=== PATIENT | female | born 1995 | race African-American/Black ===

== ENCOUNTER 2016-07-26 11:51 | Emergency (ER) | payer MEDICAID ==
[~2016-07-26] VITALS: Ht 162.6 cm; Wt 75.3 kg
[~2016-07-26 11:51] MED LIST: AMOX500T PO; PREN1CHW7 PO
--- NOTE | 2016-07-26 12:47 | PD ---
HPI Chief Complaint Contractions and spotting Date Seen: July 26, 2016 Travel History International Travel<30 Days: No Contact w/Intl Traveler<30Days: No Known Affected Area: No History of Present Illness HPI The patient is 20-year-old black female at 38 weeks followed by the [facility] who presents complaining of contractions today and minimal spotting after being examined in the last several days digitally, she denies stan blood per vagina or leakage of fluid. Baby is active. heart rate tracing is reactive. And she is omer irregularly. Para: 0 : 1 History Social History Alcohol Use: No Tobacco Use: No Substance Abuse: No Allergies-Medications (Allergen,Severity, Reaction): Coded Allergies: No Known Allergies (Unverified , 07/26/16) Home Meds Active Scripts Amoxicillin 500 Mg Kyu654 Mg PO TID #21 TAB Ref 0 Prov:Rut Pinzon 07/24/16 Vit W/ Ferric Phospha (Vitafol Gummies 3.33-0.333-34.8 mg)1 Chw Chw3 Tab PO DAILY #90 BOTTLE Ref 11 Prov:Rut Pinzon 07/02/16 Review of Systems General / Constitutional: No: Fever, Weight Gain, Chills, Other Eyes: No: Diploplia, Blurred Vision, Visual changes, Pain, Photophobia HENT: No: Headaches, Vertigo, Lightheadedness Cardiovascular: No: Irregular Rhythm, Chest Pain or Discomfort, Palpitations, Tachycardia, Syncope, Varicosities, Edema, Cyanosis Respiratory: No: Cough, Short of Breath, Other Gastrointestinal: Abdominal Pain, No: Nausea, Vomiting, Diarrhea Genitourinary: No: Decreased Urinary Output, Oliguria Musculoskeletal: No: Limited ROM, Weakness, Cramping, Edema, Pain Skin: No Rash, No Itching, No Dryness, No Lumps, No Change in Pigmentation, No Change in Nails, No Alopecia, No Lesions Neurologic: No: Weakness, Dizziness, Syncope, Focal Abnormalities, Coordination Problem, Headache, Slurred Speech, Seizures Psychiatric: No: Depression, Suicidal Ideations, Homicidal Ideation Endocrine: No: Heat Intolerance, Cold Intolerance, Polydipsia, Polyuria, Other Physical Exam Narrative GENERAL: Well-nourished, well-developed patient. SKIN: Warm and dry. HEAD: Normocephalic and atraumatic. EYES: No scleral icterus. No injection or drainage. ENT: No nasal drainage noted. Mucous membranes pink. Airway patent. NECK: Supple, trachea midline. No JVD. CARDIOVASCULAR: Regular rate and rhythm without murmurs, gallops, or rubs. RESPIRATORY: Breath sounds equal bilaterally. No accessory muscle use. BREASTS: Bilateral exam showed no masses , no retractions, no nipple discharge. ABDOMEN/GI: Abdomen soft, non-tender, bowel sounds present, no rebound, no guarding Gravid to [-38] weeks size Fundal Height: [38-] GENITOURINARY: External Genitalia: intact and normal in appearance BUS glands: [-] Cervix: [-] Dilatation: [2-3-] Effacement: [70-] Station: [-3] Presentation: [vtx-] Membranes: [intact ] Uterine Contractions: [Irregular-] FHT's: Category: [1-] Baseline: [-144] Reactive: [yes-] Variability: [mod-] Decels: [-0] EXTREMITIES: No cyanosis or edema. BACK: Nontender without obvious deformity. No CVA tenderness. NEUROLOGICAL: Awake and alert. Motor and sensory grossly within normal limits. Five out of 5 muscle strength in all muscle groups. Normal speech. MDM Interpretation(s) This patient is a 20-year-old black female at 38 weeks presents complaining of contractions and minimal spotting. Here on OB ED is no bleeding noted heart rate tracing is reactive she is omer irregularly. Cervical exam is 2-3 cm/ 70% effaced and -3 vertex presentation. I explained to the patient that is normal for stage in and the minimal spotting is not unusual to cervix is dilated and effaced like this very favorable cervix , but she is not in active labor. She not acting like she is in pain she just noticing contractions wanted checked out. Plan I explained to the patient that this if even if she continues to gets stronger and still may take 8-16 hours for should've active labor, so we will let her go home today what was going on bedrest heating pad. Tylenol orally for cramps , po fluids and bedrest , return for worsening pain, bleeding or SROM Diagnosis Diagnosis: Primary Impression: False labor after 37 weeks of gestation without delivery Disposition: 01 DISCHARGE HOME Condition: Stable Librado Nuñez II, MD July 26, 2016 12:47
== END 2016-07-26 13:24 | disposition home or self-care (01) ==
LOC: HOBED 11:51
DX: O47.1 False labor at or after 37 completed weeks of gestation (principal); O26.853 Spotting complicating pregnancy, third trimester; O62.9 Abnormality of forces of labor, unspecified; Z3A.38 38 weeks gestation of pregnancy
CPT/HCPCS: 99284

== ENCOUNTER 2016-07-26 20:06 | Inpatient (IN) | payer MEDICAID ==
[2016-07-26] VITALS (26 sets, daily range): BP systolic 110–124; BP diastolic 61–85; PULSE 84–112; RESP 18–22; TEMP 97.8
[~2016-07-26] VITALS: Ht 162.6 cm; Wt 75.3 kg
[2016-07-26] MEDS ORDERED: LACTATED RINGER'S 1000 ML INJ 1,000 ML IV PRN (20:49)
--- NOTE | 2016-07-26 20:49 | HHI.HP ---
HPI Chief Complaint Worsening contraction pain Date Seen: July 26, 2016 Travel History International Travel<30 Days: No Contact w/Intl Traveler<30Days: No Known Affected Area: No History of Present Illness HPI This patient is a 20-year-old black female at 38 weeks. The patient of [facility] who presents complaining of worsening contractions. The patient was here of approximately 9 hours ago. Her cervix at that was 2-3 cm 70% -3. She denies bleeding or rupture the membranes heart rate tracing is reactive and she is omer every 2-3 minutes now and they're much more painful and now is uncertain reaction pain she can see she is in pain which is contractions when she was here for she was playing with her phone watching TV. Para: 0 : 1 History Social History Alcohol Use: No Tobacco Use: No Substance Abuse: No Allergies-Medications (Allergen,Severity, Reaction): Coded Allergies: No Known Allergies (Unverified , 07/26/16) Home Meds Active Scripts Amoxicillin 500 Mg Uns149 Mg PO TID #21 TAB Ref 0 Prov:Rut Pinzon 07/24/16 Vit W/ Ferric Phospha (Vitafol Gummies 3.33-0.333-34.8 mg)1 Chw Chw3 Tab PO DAILY #90 BOTTLE Ref 11 Prov:Rut Pinzon 07/02/16 Review of Systems General / Constitutional: No: Fever, Weight Gain, Chills, Other Eyes: No: Diploplia, Blurred Vision, Visual changes, Pain, Photophobia HENT: No: Headaches, Vertigo, Lightheadedness Cardiovascular: No: Irregular Rhythm, Chest Pain or Discomfort, Palpitations, Tachycardia, Syncope, Varicosities, Edema, Cyanosis Respiratory: No: Cough, Short of Breath, Other Gastrointestinal: Abdominal Pain, No: Nausea, Vomiting, Diarrhea Genitourinary: No: Decreased Urinary Output, Oliguria Musculoskeletal: No: Limited ROM, Weakness, Cramping, Edema, Pain Skin: No Rash, No Itching, No Dryness, No Lumps, No Change in Pigmentation, No Change in Nails, No Alopecia, No Lesions Neurologic: No: Weakness, Dizziness, Syncope, Focal Abnormalities, Coordination Problem, Headache, Slurred Speech, Seizures Psychiatric: No: Depression, Suicidal Ideations, Homicidal Ideation Endocrine: No: Heat Intolerance, Cold Intolerance, Polydipsia, Polyuria, Other Physical Exam Narrative GENERAL: Well-nourished, well-developed patient. SKIN: Warm and dry. HEAD: Normocephalic and atraumatic. EYES: No scleral icterus. No injection or drainage. ENT: No nasal drainage noted. Mucous membranes pink. Airway patent. NECK: Supple, trachea midline. No JVD. CARDIOVASCULAR: Regular rate and rhythm without murmurs, gallops, or rubs. RESPIRATORY: Breath sounds equal bilaterally. No accessory muscle use. BREASTS: Bilateral exam showed no masses , no retractions, no nipple discharge. ABDOMEN/GI: Abdomen soft, non-tender, bowel sounds present, no rebound, no guarding Gravid to [38-] weeks size Fundal Height: [-38] GENITOURINARY: External Genitalia: intact and normal in appearance BUS glands: [-] Cervix: [-] Dilatation: [4-] Effacement: [90-] Station: [-1] Presentation: [vtx-] Membranes: [intact ] Uterine Contractions: [q 3 min-] FHT's: Category: [1-] Baseline: [144-] Reactive: [-yes] Variability: [mod-] Decels: [-0] EXTREMITIES: No cyanosis or edema. BACK: Nontender without obvious deformity. No CVA tenderness. NEUROLOGICAL: Awake and alert. Motor and sensory grossly within normal limits. Five out of 5 muscle strength in all muscle groups. Normal speech. Data Data Labs GBS is negative Assessment/Plan Assessment and Plan This 20-year-old black female at 38 weeks is now and early labor. Her cervix changed from 2-3 and 72 for 90% of the descent of presenting part. Membranes are intact heart rate tracing is reactive and contractions are noted plan to admit for labor management augmentation as needed and anticipate vaginal delivery Librado Nuñez II, MD July 26, 2016 20:49
[2016-07-26] MEDS ORDERED: LACTATED RINGER'S 1000 ML INJ 1,000 ML IV SCH (21:00)
[2016-07-26] MEDS ORDERED: SODIUM CHLORID 0.9% 500 ML INJ 500 ML IV PRN (21:00)
[2016-07-26] MEDS ORDERED: MINERAL OIL 10 ML VIAL TOPICAL PRN (21:00)
[2016-07-26] MEDS ORDERED: LIDOCAINE HCL 1% 50 ML VIAL I-DERMAL PRN (21:00)
[2016-07-26] MEDS ORDERED: CITRIC ACID-SODIUM CITRATE LIQ 30 ML UDC PO SCH (21:00)
[2016-07-26] MEDS ORDERED: OXYTOCIN 30 UNITS-500ML PREMIX 500 ML IV ONE (21:00)
[2016-07-26] MEDS ORDERED: LIDOCAINE HCL 1% 50 ML VIAL INFIL PRN (21:00)
[2016-07-26] MEDS ORDERED: SODIUM CHLOR 0.9% 1000 ML INJ 1,000 ML IV PRN (21:09)
[2016-07-26 21:58] LABS: BLOOD, URINE MOD (NEG); COMMENT (UR) CULT NOT INDICATED; CULTURE IF INDICATED CULT NOT INDICATED; GLUCOSE,URINE NEG (NEG); KETONE, URINE NEG (NEG); NITRITE,URINE NEG (NEG); SQUAMOUS EPITHELIAL CELL URINE 3 /hpf (0-5); URINE COLOR YELLOW (YELLW/STRAW)
[2016-07-26 22:02] LABS: AUTOMATED NEUTROPHIL # 9.4 TH/MM3 (1.8-7.7); BASOPHIL % 0.2 % (0.0-2.0); EOSINOPHIL # 0.1 TH/MM3 (0-0.4); EOSINOPHIL % 0.4 % (0.0-4.0); HEMATOCRIT 31.8 % (35.0-46.0); HEMO FLAGS DIFF FINAL; LYMPH % 18.3 % (9.0-44.0); LYMPHOCYTE # 2.3 TH/MM3 (1.0-4.8); MEAN CELL VOLUME 79.4 FL (80.0-100.0); MEAN CORPUSCULAR HEMOGLOBIN 26.9 PG (27.0-34.0); MEAN CORPUSCULAR HGB CONC 33.9 % (32.0-36.0); MONO % 8.1 % (0.0-8.0); PLATELET COUNT 160 TH/MM3 (150-450); RED BLOOD COUNT 4.01 MIL/MM3 (4.00-5.30); RED CELL DISTRIBUTION WIDTH 13.6 % (11.6-17.2); WHITE BLOOD COUNT 12.8 TH/MM3 (4.0-11.0)
[2016-07-26] MEDS ORDERED: fentaNYL 2MCG-BUPIV 0.125% INJ 100 ML ONE (22:06)
[2016-07-26] MEDS ORDERED: ePHEDrine/NS 25 MG/5 ML SYR ONE (22:53)
[2016-07-27] VITALS (20 sets, daily range): BP systolic 76–113; BP diastolic 54–69; PULSE 68–106; RESP 16–18; TEMP 97.8–98.2
--- NOTE | 2016-07-27 00:58 | PD.OB.DELI ---
Delivery Date: July 27, 2016 Anesthesia: Epidural Episiotomy: None Vaginal Delivery: Normal, Spontaneous Presentation: Occiput anterior Nuchal Cord: None Delayed cord clamping (45 sec): Yes Infant: Male One Minute : 9 Five Minute : 9 Weight: 2845 g Placenta: Spontaneous delivery, Intact, 3 vessel cord Laceration: No lacerations Additional Information primary: Dr. Bruce attending: Molly Brady MD July 27, 2016 00:58
[2016-07-27] MEDS ORDERED: ZOLPIDEM TARTRATE 5 MG TAB PO PRN (01:00)
[2016-07-27] MEDS ORDERED: WITCH HAZEL 50%/GLYCERIN 12.5% 40 PAD JAR TOPICAL PRN (01:00)
[2016-07-27] MEDS ORDERED: DOCUSATE SODIUM 50 MG/SENNA 8.6 MG TAB PO PRN (01:00)
[2016-07-27] MEDS ORDERED: SODIUM CHLORIDE 0.9% FLUSH 10 ML FLUSH IV FLUSH PRN (01:00)
[2016-07-27] MEDS ORDERED: BENZOCAINE 20% TOPICAL SPRAY 60 ML CAN TOPICAL PRN (01:00)
[2016-07-27] MEDS ORDERED: ALUMINUM/MAGNESIUM/SIMETH 30 ML CUP PO PRN (01:00)
[2016-07-27] MEDS ORDERED: ACETAMINOPHEN 325 MG TAB PO PRN (01:00)
[2016-07-27] MEDS ORDERED: ONDANSETRON ODT 4 MG TAB PO PRN (01:00)
[2016-07-27] MEDS ORDERED: oxyCODONE/ACETAMINOPHEN 5 MG/325 MG TAB PO PRN ×2 (01:00)
--- NOTE | 2016-07-27 08:29 | HHI.OB ---
Subjective Post Day: 0 Remarks Patient is a 20-year-old delivered at 38 weeks and 3 days. Patient is day 0 after . Patient's pain is well-controlled. Patient reports eating and drinking at 4am without any nausea or vomiting. Patient reports vaginal bleeding like a period. Patient has not passed gas or bowel movements. Patient hase walked to the bathroom without lower extremity pain or shortness of breath. Patient reports desire for contraception with OCP's and bottle- feeding and breast-feeding. Objective Vitals/I&O Vital Signs Date Time Temp Pulse Resp B/P Pulse Ox O2 Delivery O2 Flow Rate FiO2 07/27/16 03:30 97.8 91 18 102/58 07/27/16 02:50 18 07/27/16 02:45 81 105/65 07/27/16 02:32 86 76/61 07/27/16 02:16 70 100/57 07/27/16 02:05 18 07/27/16 02:05 98.0 07/27/16 02:00 68 106/62 07/27/16 01:50 18 07/27/16 01:45 73 104/58 07/27/16 01:35 18 07/27/16 01:32 77 106/63 07/27/16 01:20 18 07/27/16 01:15 73 113/54 07/27/16 01:00 18 07/27/16 00:45 104 108/59 07/27/16 00:30 18 07/27/16 00:15 96 103/61 07/27/16 00:00 106 111/68 07/27/16 00:00 18 07/26/16 23:45 93 121/64 07/26/16 23:40 88 07/26/16 23:35 93 07/26/16 23:30 101 119/61 07/26/16 23:30 18 07/26/16 23:30 99 07/26/16 23:25 106 07/26/16 23:20 89 07/26/16 23:15 93 07/26/16 23:15 93 18 110/66 07/26/16 23:10 92 07/26/16 23:05 90 07/26/16 23:01 105 115/65 07/26/16 23:00 97.8 07/26/16 23:00 94 18 07/26/16 22:55 97 07/26/16 22:50 84 07/26/16 22:45 85 07/26/16 22:45 95 119/62 07/26/16 22:40 100 07/26/16 22:35 103 07/26/16 22:35 107 124/72 07/26/16 22:34 18 07/26/16 22:31 103 121/62 07/26/16 22:30 20 07/26/16 22:30 99 07/26/16 22:25 93 123/85 07/26/16 22:25 111 07/26/16 22:23 90 111/69 07/26/16 22:20 106 07/26/16 22:15 22 07/26/16 22:15 112 07/26/16 22:12 93 118/67 07/26/16 22:00 18 07/26/16 21:30 18 Objective Remarks GENERAL: Well-nourished, well-developed patient. CARDIOVASCULAR: Regular rate and rhythm without murmurs, gallops, or rubs. RESPIRATORY: Breath sounds equal bilaterally. No accessory muscle use. ABDOMEN/GI: Abdomen soft, non-tender. Fundus: Firm, non-tender at umbilicus. GENITOURINARY: Light to moderate bleeding. EXTREMITIES: No cyanosis or edema, non-tender, without signs of DVT. Medications and IVs Current Medications Medications (Trade) Dose Ordered Sig/Colt Route Start Time Stop Time Status Last Admin Lactated Ringer's 1,000 ml @ 125 mls/hr Q8H IV 07/26/16 21:00 07/26/16 21:00 Lactated Ringer's 1,000 ml @ 3,000 mls/hr Q20M PRN IV 07/26/16 20:49 07/27/16 03:45 Sodium Chloride 500 ml @ 1,000 mls/hr ONCE PRN IV 07/26/16 21:00 07/27/16 20:59 (NS 1000 ml Inj) 1,000 ml @ 100 mls/hr Q10H PRN IV 07/26/16 21:09 (fentaNYL INJ) 50 mcg Q1H PRN IV PUSH 07/26/16 21:00 (fentaNYL INJ) 100 mcg Q1H PRN IV PUSH 07/26/16 21:00 (Muri-Lube Oil) 10 ml UNSCH PRN TOPICAL 07/26/16 21:00 (NS Flush) 2 ml BID IV FLUSH 07/27/16 09:00 (NS Flush) 2 ml UNSCH PRN IV FLUSH 07/27/16 01:00 (Tylenol) 650 mg Q4H PRN PO 07/27/16 01:00 (Motrin) 600 mg Q6H PRN PO 07/27/16 01:00 (Percocet 5-325 Mg) 1 tab Q4H PRN PO 07/27/16 01:00 (Percocet 5-325 Mg) 2 tab Q4H PRN PO 07/27/16 01:00 (Americaine 20% Top Spr) 1 spray Q4H PRN TOPICAL 07/27/16 01:00 (Tucks Pads) 1 applic QID PRN TOPICAL 07/27/16 01:00 (Katarzyna-Colace) 2 tab Q12H PRN PO 07/27/16 01:00 (Ambien) 5 mg HS PRN PO 07/27/16 01:00 (M-M-R Ii Inj) 0.5 ml ONCE ONCE SQ 07/27/16 16:00 07/27/16 16:01 (Boostrix Inj) 0.5 ml ONCE ONCE IM 07/27/16 16:00 07/27/16 16:01 (Mag-Al Plus Susp Liq) 15 ml Q8H PRN PO 07/27/16 01:00 (Zofran Odt) 4 mg Q6H PRN PO 07/27/16 01:00 Assessment/Plan Problem List: (1) (spontaneous vaginal delivery) Assessment and Plan Patient is a 20-year-old delivered at 38 weeks and 3 days. Patient is day 0 after . Patient was counseled to do 6 weeks of pelvic rest. Patient was counseled to follow up in 6 weeks. Patient requested follow-up and contraception with OCP's. --AF VSS --Continue routine care --Motrin and Percocet when necessary for pain --Encourage OOB --Pelvic rest for 6 weeks will need follow-up appointment at that time. --Contraception: Progestin-only OCP will rx ortho-micronor upon discharge to be started after next menses. --Anticipate discharge in 1-[address] Nuñez. Discharge Planning Anticipate discharge in 1-2 days. Rafael Polk MD R1 July 27, 2016 08:29
[2016-07-27] MEDS ORDERED: SODIUM CHLORIDE 0.9% FLUSH 10 ML FLUSH IV FLUSH SCH (09:00)
[2016-07-27] MEDS ORDERED: DIPHTH/TETANUS/ACEL PERTUSSIS (BOOSTER) 0.5 ML VIAL/PFS IM ONE (16:00)
[2016-07-27] MEDS ORDERED: MEASLES, MUMPS, RUBELLA VACCINE 0.5 ML VIAL SQ ONE (16:00)
[2016-07-28 07:45] VITALS: BP 120/72; PULSE 71; RESP 16; TEMP 98.4
[2016-07-28] MEDS: IBUPROFEN 600 MG TAB PO PRN ×2 (08:18→16:38)
--- NOTE | 2016-07-28 09:16 | HHI.OB ---
Subjective Remarks 20 year old PPD 1. No complaints this morning. Pain well controlled. Currently formula feeding. Soleobdulio Pinzon is her OB provider. Desires progesterone only pill at discharge for control. Walking without difficulty. Appetite is good. (Rafael Liriano MD R2) Objective Vitals/I&O Vital Signs Date Time Temp Pulse Resp B/P Pulse Ox O2 Delivery O2 Flow Rate FiO2 07/27/16 20:30 82 18 106/69 07/27/16 20:30 98.2 Objective Remarks GENERAL: Well-nourished, well-developed patient. CARDIOVASCULAR: Regular rate and rhythm without murmurs, gallops, or rubs. RESPIRATORY: Breath sounds equal bilaterally. No accessory muscle use. ABDOMEN/GI: Abdomen soft, non-tender. Fundus: Firm, non-tender at umbilicus. GENITOURINARY: Light to moderate bleeding. EXTREMITIES: No cyanosis or edema, non-tender, without signs of DVT. Medications and IVs Current Medications Medications (Trade) Dose Ordered Sig/Colt Route Start Time Stop Time Status Last Admin Lactated Ringer's 1,000 ml @ 125 mls/hr Q8H IV 07/26/16 21:00 07/26/16 21:00 Lactated Ringer's 1,000 ml @ 3,000 mls/hr Q20M PRN IV 07/26/16 20:49 07/27/16 03:45 (NS 1000 ml Inj) 1,000 ml @ 100 mls/hr Q10H PRN IV 07/26/16 21:09 (fentaNYL INJ) 50 mcg Q1H PRN IV PUSH 07/26/16 21:00 (fentaNYL INJ) 100 mcg Q1H PRN IV PUSH 07/26/16 21:00 (Muri-Lube Oil) 10 ml UNSCH PRN TOPICAL 07/26/16 21:00 (NS Flush) 2 ml BID IV FLUSH 07/27/16 09:00 (NS Flush) 2 ml UNSCH PRN IV FLUSH 07/27/16 01:00 (Tylenol) 650 mg Q4H PRN PO 07/27/16 01:00 (Motrin) 600 mg Q6H PRN PO 07/27/16 01:00 07/28/16 08:18 (Percocet 5-325 Mg) 1 tab Q4H PRN PO 07/27/16 01:00 (Percocet 5-325 Mg) 2 tab Q4H PRN PO 07/27/16 01:00 (Americaine 20% Top Spr) 1 spray Q4H PRN TOPICAL 07/27/16 01:00 (Tucks Pads) 1 applic QID PRN TOPICAL 07/27/16 01:00 (Katarzyna-Colace) 2 tab Q12H PRN PO 07/27/16 01:00 (Ambien) 5 mg HS PRN PO 07/27/16 01:00 (Mag-Al Plus Susp Liq) 15 ml Q8H PRN PO 07/27/16 01:00 (Zofran Odt) 4 mg Q6H PRN PO 07/27/16 01:00 (Rafael Liriano MD R2) Assessment/Plan Problem List: (1) (spontaneous vaginal delivery) Assessment and Plan Patient is a 20-year-old delivered at 38 weeks and 3 days. Patient is day 1 after . --Continue routine care --Motrin for pain management --Pelvic rest for 6 weeks - See OB provider in 4 to 6 weeks --Contraception: Progestin-only OCP will rx ortho-micronor upon discharge --Anticipate discharge tomorrow dw Dr. Madden Discharge Planning Anticipate discharge tomorrow (Rafael Liriano MD R2) Attending Attestation Agree with above. D/c home tomorrow. (Mable Madden MD) Rafael Liriano MD R2 July 28, 2016 09:16 Mable Madden MD July 28, 2016 09:41
[2016-07-28 19:28] VITALS: BP 108/62; PULSE 73; RESP 16; TEMP 98
[2016-07-29] MEDS ORDERED: IBUP-232 PO (06:57)
[2016-07-29] MEDS ORDERED: SENN1TAB PO (06:57)
--- NOTE | 2016-07-29 06:58 | HHI.DCPOC ---
Discharge Care Plan Diagnosis: (1) (spontaneous vaginal delivery) Goals to Promote Your Health * To prevent worsening of your condition and complications * To maintain your health at the optimal level Directions to Meet Your Goals Take your medications as prescribed Follow your dietary instruction Follow activity as directed Keep your appointments as scheduled Take your immunizations and boosters as scheduled If your symptoms worsen call your PCP, if no PCP go to Urgent Care Center or Emergency Room Smoking is Dangerous to Your Health. Avoid second hand smoke Call the 24-hour hour crisis hotline for domestic abuse at Rafael Liriano MD R2 July 29, 2016 06:58 Nir Simon MD July 29, 2016 09:42
[2016-07-29] MEDS ORDERED: ORTH0.35 PO (07:10)
--- NOTE | 2016-07-29 07:10 | HHI.OB ---
Subjective Remarks 20 year old PPD 2. No complaints this morning. Pain well controlled. Currently formula feeding. Sole Jeromy is her OB provider. Desires progesterone only pill at discharge for control. Walking without difficulty. Appetite is good. Wants to be discharged today. (Rafael Liriano MD R2) Remarks Patient seen and evaluated with resident under direct supervision, agree with assessment and plan. (Nir Simon MD) Objective Vitals/I&O Vital Signs Date Time Temp Pulse Resp B/P Pulse Ox O2 Delivery O2 Flow Rate FiO2 07/28/16 19:28 98.0 73 16 07/28/16 19:28 108/62 07/28/16 07:45 71 16 120/72 07/28/16 07:45 98.4 Objective Remarks GENERAL: Well-nourished, well-developed patient. CARDIOVASCULAR: Regular rate and rhythm without murmurs, gallops, or rubs. RESPIRATORY: Breath sounds equal bilaterally. No accessory muscle use. ABDOMEN/GI: Abdomen soft, non-tender. Fundus: Firm, non-tender at umbilicus. GENITOURINARY: Light to moderate bleeding. EXTREMITIES: No cyanosis or edema, non-tender, without signs of DVT. Medications and IVs Current Medications Medications (Trade) Dose Ordered Sig/Colt Route Start Time Stop Time Status Last Admin Lactated Ringer's 1,000 ml @ 125 mls/hr Q8H IV 07/26/16 21:00 07/26/16 21:00 Lactated Ringer's 1,000 ml @ 3,000 mls/hr Q20M PRN IV 07/26/16 20:49 07/27/16 03:45 (NS 1000 ml Inj) 1,000 ml @ 100 mls/hr Q10H PRN IV 07/26/16 21:09 (fentaNYL INJ) 50 mcg Q1H PRN IV PUSH 07/26/16 21:00 (fentaNYL INJ) 100 mcg Q1H PRN IV PUSH 07/26/16 21:00 (Muri-Lube Oil) 10 ml UNSCH PRN TOPICAL 07/26/16 21:00 (NS Flush) 2 ml BID IV FLUSH 07/27/16 09:00 (NS Flush) 2 ml UNSCH PRN IV FLUSH 07/27/16 01:00 (Tylenol) 650 mg Q4H PRN PO 5/26/17 01:00 (Motrin) 600 mg Q6H PRN PO 07/27/16 01:00 07/28/16 16:38 (Percocet 5-325 Mg) 1 tab Q4H PRN PO 07/27/16 01:00 (Percocet 5-325 Mg) 2 tab Q4H PRN PO 07/27/16 01:00 (Americaine 20% Top Spr) 1 spray Q4H PRN TOPICAL 07/27/16 01:00 (Tucks Pads) 1 applic QID PRN TOPICAL 07/27/16 01:00 (Katarzyna-Colace) 2 tab Q12H PRN PO 07/27/16 01:00 (Ambien) 5 mg HS PRN PO 07/27/16 01:00 (Mag-Al Plus Susp Liq) 15 ml Q8H PRN PO 07/27/16 01:00 (Zofran Odt) 4 mg Q6H PRN PO 07/27/16 01:00 (Rafael Liriano MD R2) Assessment/Plan Problem List: (1) (spontaneous vaginal delivery) Assessment and Plan Patient is a 20-year-old delivered at 38 weeks and 3 days. Patient is day 2 after . --Continue routine care --Motrin for pain management --Pelvic rest for 6 weeks - See OB provider in 4 to 6 weeks --Contraception: Progestin-only OCP will rx ortho-micronor upon discharge --Anticipate discharge today dw Dr. Simon (Rafael Liriano MD R2) Rafael Liriano MD R2 July 29, 2016 07:09 Nir Simon MD July 29, 2016 09:42
[2016-07-29 07:32] VITALS: BP 108/68; PULSE 70; RESP 16; TEMP 98.1
== END 2016-07-29 13:09 | disposition home or self-care (01) | DRG 775 ==
LOC: HOBED 20:06 → H2EB 20:56 → H1EA 07-27 03:03
PROVIDERS: ADMIT Obstetrics & Gynecology Maternal & Fetal Medicine; ATTEND Obstetrics & Gynecology Maternal & Fetal Medicine
PROC: 10E0XZZ Delivery of Products of Conception, External Approach (ICD-10-PCS; principal; 2016-07-26)
PROC: 00HU33Z Insertion of Infusion Device into Spinal Canal, Percutaneous Approach (ICD-10-PCS; 2016-07-26)
PROC: 3E0R3CZ (ICD-10-PCS; 2016-07-26)
DX: O80 Encounter for full-term uncomplicated delivery (principal); Z37.0 Single live birth; Z3A.38 38 weeks gestation of pregnancy
CPT/HCPCS: 59025; 81001; 85025; 86900; 86901; 99284; J7120

== ENCOUNTER 2017-08-14 15:07 | Emergency (ER) | payer MEDICAID ==
[~2017-08-14] VITALS: Ht 162.6 cm; Wt 84.8 kg
[~2017-08-14 15:07] MED LIST changes: -AMOX500T PO; +IBUP-232 PO; +ORTH0.35 PO; +SENN1TAB PO
--- NOTE | 2017-08-14 15:25 | PD ---
HPI Chief Complaint Vomiting and diarrhea Travel History International Travel<30 Days: No Contact w/Intl Traveler<30Days: No Known Affected Area: No History of Present Illness HPI Patient is a 21-year-old at 36/4 weeks gestation that presents to the [facility] with chief complaints of vomiting and diarrhea that began on 08/11/2017. Patient states that since then she has had at least 20 episodes of nonbloody, non-mucousy, brown PRN diarrhea and she has also vomited multiple times per day except today. She has not been able to keep any food down. Patient denies fever, chills, abdominal pain, headache, chest pain, shortness of breath, blurry vision, increased leg swelling, dysuria, abnormal vaginal discharge, vaginal itching, vaginal bleeding. She also denies contractions and loss of fluid. Patient states that she did not eat anything unusual and has not been on antibiotics. She denies sick contacts at home and nobody has been on antibiotics around her. She has not been in a healthcare facility recently. She gets her care at [facility] and states that all her labs with a normal. Notably, had a CBC on 08/01/2017 showed a hemoglobin of 8.0. She has been taking iron tablets once a day at bedtime for the last 2 weeks except for the last 3 days due to vomiting and diarrhea. She is GBS negative. Weeks Gestation: 36 Para: 1 : 2 History Past Medical History Narrative Medical Anemia associated with Obstetric History Obstetric History 001 -1 full-term delivery at 38 weeks [facility] with no complications Past Surgical History Surgical History: No Previous Surgery Family History Narrative Family History No family history of diabetes, hypertension, asthma, Crohn's disease Social History Alcohol Use: No Tobacco Use: No Substance Abuse: No Allergies-Medications (Allergen,Severity, Reaction): Coded Allergies: No Known Allergies (Unverified , 07/26/16) Home Meds Active Scripts Ondansetron Odt (Zofran Odt) 4 Mg Tab, 4 MG SL Q6HR Y for Nausea/Vomiting, #30 TAB 0 Refills Prov:Joanna Guillen MD R2 08/14/17 Nitrofurantoin Macrocrystal (Nitrofurantoin Macrocrystal) 100 Mg Cap, 100 MG PO BID for Infection for 7 Days, #14 CAP 0 Refills Prov:Joanna Guillen MD R2 08/14/17 Sennosides-Docusate Sodium (Senna Plus 8.6-50 mg) 1 Tab Tab, 2 TAB PO Q12H Y for CONSTIPATION, #30 TAB Prov:Rafael Liriano MD R3 07/29/16 Vit W/ Ferric Phospha (Vitafol Gummies 3.33-0.333-34.8 mg) 1 Chw Chw, 3 TAB PO DAILY, #90 BOTTLE 11 Refills Prov:uRt Pinzon 07/02/16 Discontinued Scripts Norethindrone (Ortho Micronor-35) 0.35 Mg Tab, 1 TAB PO DAILY for Control , #1 PACK 0 Refills Prov:Rafael Liriano MD R3 07/29/16 Ibuprofen (Ibuprofen) 600 Mg Tab, 600 MG PO Q6H Y for CRAMPING, #30 TAB Prov:Rafael Liriano MD R3 07/29/16 Review of Systems Except as stated in HPI: all other systems reviewed are Neg Physical Exam Narrative GENERAL: Well-nourished, well-developed patient. SKIN: Warm and dry. HEAD: Normocephalic and atraumatic. EYES: No scleral icterus. No injection or drainage. ENT: No nasal drainage noted. Mucous membranes pink. Airway patent. NECK: Supple, trachea midline. No JVD. CARDIOVASCULAR: Regular rate and rhythm without murmurs, gallops, or rubs. RESPIRATORY: Breath sounds equal bilaterally. No accessory muscle use. ABDOMEN/GI: Abdomen soft, non-tender, bowel sounds present, no rebound, no guarding Gravid to 36 weeks size GENITOURINARY: FHT's: Category: I Baseline: 145 Reactive: yes Variability: moderate Decels: none EXTREMITIES: No cyanosis or edema. BACK: Nontender without obvious deformity. No CVA tenderness. NEUROLOGICAL: Awake and alert. Motor and sensory grossly within normal limits. Five out of 5 muscle strength in all muscle groups. Normal speech. Data Data Vital Signs Reviewed: Yes Group B Strep: Negative MDM Medical Record Reviewed: Yes Interpretation(s) 21 presents with vomiting and diarrhea of 3-day duration most likely due to viral gastroenteritis Plan 1. IUP -FHTs category I - reassuring 2. Nausea, vomiting, diarrhea -Will check CBC, CMP, and UA * UA was significant for an elevated specific gravity of 1.040 with trace ketones, moderate occult blood, trace leukocyte esterase, 38 WBC, rare bacteria -Normal saline bolus 500 cc 1 -D5 LR at 125 mL/h -Zofran 4 mg ODT 1 for nausea/vomiting -Imodium 4 mg p.o. 1 for diarrhea 3. Anemia -CBC showed H/H of 10.4/31.5 * Continue iron tablets Update -Patient tolerated zofran SL and imodium PO. She was given some oral hydration which she tolerated without vomiting. Due to the presence of blood in urine and trace leukocyte esterase, will treat for a UTI with Macrobid 100 mg p.o. twice daily 7 days. Patient was discharged home in stable condition to follow- up with OB provider within [address] Peraza Diagnosis Diagnosis: Primary Impression: Nausea & vomiting Additional Impressions: Diarrhea Viral gastroenteritis UTI (urinary tract infection) in in third trimester 36 weeks gestation of Disposition: DISCHARGE HOME Condition: Stable Scripts Ondansetron Odt (Zofran Odt) 4 Mg Tab 4 MG SL Q6HR Y for Nausea/Vomiting, #30 TAB 0 Refills Prov: Joanna Guillen MD R2 08/14/17 Nitrofurantoin Macrocrystal (Nitrofurantoin Macrocrystal) 100 Mg Cap 100 MG PO BID for Infection for 7 Days, #14 CAP 0 Refills Prov: Joanna Guillen MD R2 08/14/17 Patient Instructions: Nausea and Vomiting in (ED) Joanna Guillen MD R2 Aug 14, 2017 15:25
[2017-08-14] MEDS ORDERED: DEXTROSE 5%-LACTATED RING INJ 1,000 ML IV SCH (15:45)
[2017-08-14] MEDS ORDERED: SODIUM CHLORID 0.9% 500 ML INJ 500 ML IV ONE (15:45)
[2017-08-14] MEDS ORDERED: ONDANSETRON ODT 4 MG TAB PO ONE (16:00)
[2017-08-14] MEDS ORDERED: LOPERAMIDE HCL 2 MG CAP PO ONE (16:00)
[2017-08-14 16:32] LABS: HEMATOCRIT 31.5 % (35.0-46.0); HEMOGLOBIN 10.4 GM/DL (11.6-15.3); MEAN CELL VOLUME 76.3 FL (80.0-100.0); MEAN CORPUSCULAR HEMOGLOBIN 25.3 PG (27.0-34.0); MEAN CORPUSCULAR HGB CONC 33.1 % (32.0-36.0); MEAN PLATELET VOLUME 9.3 FL (7.0-11.0); PLATELET COUNT 189 TH/MM3 (150-450); RED BLOOD COUNT 4.13 MIL/MM3 (4.00-5.30); RED CELL DISTRIBUTION WIDTH 18.1 % (11.6-17.2); WHITE BLOOD COUNT 6.1 TH/MM3 (4.0-11.0)
[2017-08-14 16:43] LABS: BACTERIA, URINE RARE /hpf; BLOOD, URINE MOD (NEG); GLUCOSE,URINE NEG (NEG); KETONE, URINE TRACE mg/dL (NEG); MUCUS URINE FEW /lpf (OCC); NITRITE,URINE NEG (NEG); PH, URINE 6.5 (5.0-8.5); SQUAMOUS EPITHELIAL CELL URINE 8 /hpf (0-5); URINE COLOR YELLOW (YELLW/STRAW); URINE LEUKOCYTE ESTERASE TRACE (NEG)
[2017-08-14 16:47] LABS: BILIRUBIN, URINE NEG (NEG)
[2017-08-14 16:57] LABS: ALBUMIN 2.8 GM/DL (3.4-5.0); ALT (GPT) 44 U/L (9-42); AST (GOT) 35 U/L (16-38); BICARBONATE 20.6 MEQ/L (21.0-32.0); BLOOD UREA NITROGEN 6 MG/DL (7-18); CALCIUM 8.5 MG/DL (8.5-10.1); CHLORIDE 106 MEQ/L (98-107); CREATININE 0.52 MG/DL (0.50-1.00); GLOMERULAR FILTRATION RATE 182 ML/MIN (>89); GLUCOSE,RANDOM 75 MG/DL (74-106); SODIUM (NA) 139 MEQ/L (136-145)
[2017-08-14 16:59] LABS: ALKALINE PHOSPHATASE 125 U/L (45-117); TOTAL BILIRUBIN ADULT 0.3 MG/DL (0.2-1.0); TOTAL PROTEIN 7.6 GM/DL (6.4-8.2)
[2017-08-14] MEDS ORDERED: NITR1CAP36 PO (17:09)
[2017-08-14] MEDS ORDERED: ZOFR4TAB3 SL (17:12)
== END 2017-08-14 18:00 | disposition home or self-care (01) ==
LOC: HOBED 15:07
DX: O21.2 Late vomiting of pregnancy (principal); O23.43 Unspecified infection of urinary tract in pregnancy, third trimester; A08.4 Viral intestinal infection, unspecified; R19.7 Diarrhea, unspecified; Z3A.36 36 weeks gestation of pregnancy
CPT/HCPCS: 59025; 80053; 81001; 85027; 96360; 99283; J7040; J7121

== ENCOUNTER 2017-08-30 07:09 | Inpatient (IN) ==
[2017-08-31] MEDS ORDERED: Senna/Docusate Sodium 8.6/50 MG Tablet ONE (23:40)
[2017-08-31] MEDS ORDERED: Acetaminophen 325 MG Tablet ONE (23:41)
[2017-09-01] MEDS ORDERED: Sod Chloride 0.9% Inj 1,000 ML IV.SIG PRN (00:01)
[2017-09-01] MEDS ORDERED: Lidocaine 1% Inj 50 ML Vial INFILTRATN PRN (00:01)
[2017-09-01] MEDS ORDERED: Senna/Docusate Sodium 8.6/50 MG Tablet PO PRN (00:01)
[2017-09-01] MEDS ORDERED: Aluminum/Magnesium/Simethacone Susp 30 ML UDC PO PRN (00:01)
[2017-09-01] MEDS ORDERED: Benzocaine 20% Top Spray 60 ML Can TOPICAL PRN (00:01)
[2017-09-01] MEDS ORDERED: Lidocaine 1% Inj 50 ML Vial I-DERMAL PRN (00:01)
[2017-09-01] MEDS ORDERED: Acetaminophen 325 MG Tablet PO PRN (00:01)
[2017-09-01] MEDS ORDERED: Oxytocin 30 Units/500ml Premix 30 UNITS/500 ML BAG IV.CONT SCH (00:01)
[2017-09-01] MEDS ORDERED: Citric Acid/Sodium Citrate Liq 30 ML UDC PO SCH (00:01)
[2017-09-01] MEDS ORDERED: fentaNYL Citrate Inj 100 MCG/2 ML Ampul IV.PUSH PRN ×2 (00:01)
[2017-09-01] MEDS ORDERED: Witch Hazel 50%/Glyderin 12.5% 40 Pad Jar RECTAL PRN (00:01)
[2017-09-01] MEDS ORDERED: Zolpidem Tartrate 5 MG Tablet PO PRN (00:01)
--- NOTE | 2017-09-01 10:06 | P.PNOB ---
Subjective Interval history: Patient is a 21-year-old . Patient is day 2 after . Patient' s pain is well-controlled. Patient reports eating and drinking without any nausea or vomiting. Patient reports minimal bleeding. Patient has passed gas and bowel movements. Patient is walking without lower extremity pain or shortness of breath. Patient reports desire for contraception. Objective Vital Signs/I&O: Vital Signs 09/01/17 07:35 Temperature 98.7 F Pulse Rate 74 Respiratory Rate 12 Blood Pressure 113/70 Intake & Output 08/31/17 09/01/17 09/01/17 18:59 06:59 18:59 Weight 86 kg Result Diagrams: 08/30/17 08:10 Objective Remarks: GENERAL: Well-nourished, well-developed patient. CARDIOVASCULAR: Regular rate and rhythm without murmurs, gallops, or rubs. RESPIRATORY: Breath sounds equal bilaterally. No accessory muscle use. ABDOMEN/GI: Abdomen soft, non-tender. Fundus: Firm, non-tender at umbilicus. GENITOURINARY: Light to moderate bleeding. EXTREMITIES: No cyanosis or edema, non-tender, without signs of DVT. Medications and IVs: Active Medications Acetaminophen (Tylenol) 650 mg PO Q4H PRN PRN Reason: PAIN SCALE 1 TO 2 Last Admin: 09/01/17 06:25 Dose: 650 mg Al Hydrox/Mg Hydrox/Simethicone (Mag-Al Plus Susp Liq) 15 ml PO Q8H PRN PRN Reason: DYSPEPSIA Benzocaine (Americaine 20% [place]) 1 spray TOPICAL Q4H PRN PRN Reason: PERINEUM DISCOMFORT Citric Acid/Sodium Citrate (Sodium Citrate/Citric Acid Liq) 30 ml PO [employer] [facility] [place] Stop: 09/03/17 07:44 Fentanyl Citrate (Fentanyl Inj) 50 mcg IV.PUSH Q1H PRN PRN Reason: PAIN SCALE 3 TO 5 Fentanyl Citrate (Fentanyl Inj) 100 mcg IV.PUSH Q1H PRN PRN Reason: PAIN SCALE 6 TO 10 Lactated Ringer's (Lr 1000 Ml Inj) 1,000 mls @ 125 mls/hr IV.CONT .Q8H [facility] [place] Lactated Ringer's (Lr 1000 Ml Inj) 1,000 mls @ 3,000 mls/hr IV.SIG .Q20M PRN PRN Reason: SEE LABEL COMMENTS Sodium Chloride (Ns Inj) 1,000 mls @ 100 mls/hr IV.SIG .Q10H PRN PRN Reason: SEE COMMENTS Lidocaine HCl (Xylocaine 1% Inj (50 Ml)) 0.1 ml I-DERMAL UNSCH X1 PRN PRN Reason: SEE LABEL COMMENTS Lidocaine HCl (Xylocaine 1% Inj (50 Ml)) 10 ml INFILTRATN UNSCH X1 PRN PRN Reason: SEE LABEL COMMENTS Mineral Oil (Muri-Lube Oil) 10 ml TOPICAL UNSCH PRN PRN Reason: SEE LABEL COMMENTS Ondansetron HCl (Zofran Odt) 4 mg PO Q6H PRN PRN Reason: NAUSEA OR VOMITING Senna/Docusate Sodium (Katarzyna-Colace) 2 tab PO Q12H PRN PRN Reason: CONSTIPATION Sodium Chloride (Ns Flush) 2 ml IV.FLUSH BID HAYES Sodium Chloride (Ns Flush) 2 ml IV.FLUSH PRN PRN PRN Reason: FLUSH AFTER USING IV ACCESS Witch Jayda/Glycerin (Tucks Pads) 1 applicatio RECTAL QID PRN PRN Reason: HEMORRHOIDS Zolpidem Tartrate (Ambien) 5 mg PO HS PRN PRN Reason: SLEEP Assessment and Plan - Diagnosis (1) (spontaneous vaginal delivery) Code(s): O80 - Encounter for full-term uncomplicated delivery Status: Acute - Plan Patient is a 21-year-old . Patient is day 2 after . Patient was counseled to do 6 weeks of pelvic rest. Patient was counseled to follow up in 6 weeks. Patient requested follow-up and contraception. --AF VSS --Continue routine care --Motrin and Percocet when necessary for pain --Encourage OOB --Pelvic rest for 6 weeks will need follow-up appointment at that time. --Contraception: Depo-Provera shot --Anticipate discharge today
[2017-09-01] MEDS ORDERED: medroxyPROGESTERone Acetate Inj 150 MG/ML Syringe IM ONE (11:40)
== END 2017-09-01 17:07 | disposition home or self-care (01) ==
LOC: UNDODISIN → H1EA 07:52
PROVIDERS: ADMIT Obstetrics & Gynecology Maternal & Fetal Medicine; ATTEND Obstetrics & Gynecology Maternal & Fetal Medicine